=== PATIENT | male | born 1980 | race Caucasian/White ===

== ENCOUNTER 2024-10-21 12:36 | Emergency (ER) | payer SELFPAY ==
[2024-10-21 13:14] LABS: #Basophils 0.04 10x3/uL (0.0-0.2); #Eosinophils 0.15 10x3/uL (0.0-0.5); #Monocytes 0.80 10x3/uL (0.0-1.1); #Neutrophils 8.42 10x3/uL (1.5-8.4); %Basophils 0.3 % (0.0-2.0); %Eosinophils 1.3 % (0.0-6.0); %Lymphocytes 20.6 % (18.0-47.0); %Monocytes 6.7 % (0.0-10.0); %Neutrophils 70.6 % (40.0-75.0); Hematocrit 42.5 % (38.8-50.0); Hemoglobin 14.7 g/dL (13.5-17.5); Mean Corpuscular Hemoglobin 30.1 pg (27.0-33.0); Mean Corpuscular Volume 87.1 fL (81.2-95.1); Platelet Count 282 10x3/uL (150-450); Red Blood Cell (RBC) Count 4.88 10x6/uL (4.32-5.72); White Blood Cell (WBC) Count 11.92 10x3/uL (3.5-10.5)
[2024-10-21 13:41] LABS: ALT (SGPT) 39 U/L (Less than 45); AST (SGOT) 23 U/L (11-34); Albumin 5.0 g/dL (3.1-4.5); Alkaline Phosphatase 89 U/L (40-110); Anion Gap 13 mmol/L (10-20); BUN (Urea Nitrogen) 14 mg/dL (8.9-20.6); Bilirubin, Total 0.5 mg/dL (0.3-1.2); Calc. Creatinine Clearance 0 mL/min (70-130); Calcium 9.2 mg/dL (7.8-10.44); Carbon Dioxide 26 mmol/L (22-29); Chloride 104 mmol/L (98-107); Globulin 3.4 g/dL (2.4-3.5); Glucose 93 mg/dL (70-105); Potassium 4.0 mmol/L (3.5-5.1); Sodium 139 mmol/L (136-145)
[2024-10-21 15:47] LABS: Troponin I Less than 0.010 ng/mL (< 0.028)
== END 2024-10-21 17:53 | disposition home or self-care (01) ==
LOC: CSHERS 12:36
DX: R07.89 Other chest pain (principal); F17.210 Nicotine dependence, cigarettes, uncomplicated
CPT/HCPCS: 36415; 71045; 80053; 84484; 85025; 93005; 94760